=== PATIENT | male | born 1955 | race Caucasian/White ===

== ENCOUNTER → 2016-09-01 | Day surgery (SDC) | payer BC ==
[2016-08-28 08:49] VITALS: BMI 46.0
--- NOTE | 2016-08-28 09:30 | PAT Medication Instructions ---
Service Date Aug 28, 2016. Current Home Medication List Candesartan Cilexetil-Hydrochl (Atacand Hct), 1 TAB PO QAM Cholecalciferol (Vitamin D3), 2 TAB PO QAM Indomethacin (Indocin), 50 MG PO TID Lansoprazole (Prevacid), 30 MG PO QAM Loratadine (Claritin), 10 MG PO QAM Metoprolol Succ (Toprol Xl) (Toprol-Xl), 50 MG PO QAM Isabella-3 Fatty Acids (Fish Oil 1200 mg), 2,000 MG PO QAM Medication Instructions For Your Scheduled Surgery Isabella-3 Fatty Acids (Fish Oil 1200 mg), 2,000 MG PO QAM (patient has been holding medication since the week 08/18/16) - Hold the following medications the morning of surgery: Loratadine (Claritin), 10 MG PO QAM Cholecalciferol (Vitamin D3), 2 TAB PO QAM Indomethacin (Indocin), 50 MG PO TID (not told to stop by surgeon) Candesartan Cilexetil-Hydrochl (Atacand Hct), 1 TAB PO QAM - Take the following medications the morning of surgery with a sip of water: Metoprolol Succ (Toprol Xl) (Toprol-Xl), 50 MG PO QAM Lansoprazole (Prevacid), 30 MG PO QAM If you have any questions please call us at [phone] or [phone] ( Princess) or [phone]
[2016-08-28 09:59] LABS: BASO % 0.4 %; BASO ABS # 0.03 K/uL (0-0.2); COMPLETE YES; EOS % 4.3 %; IG% 0.7 %; LYMPH % 32.2 %; LYMPH ABS # 2.45 K/uL (1.2-3.4); MEAN CELL VOLUME 87.6 fL (80-100); MEAN CORPUSCULAR HEMOGLOBIN 30.5 pg (25-34); MEAN CORPUSCULAR HGB CONC 34.8 g/dl (32-36); MEAN PLATELET VOLUME 11.6 fL (7.4-10.4); NEUT % 55.4 %; PLATELET COUNT 116 K/uL (130-400); RED BLOOD COUNT 5.02 M/uL (4.7-6.1)
[2016-08-28 10:04] LABS: URINE APPEARANCE CLEAR (CLEAR); URINE BILIRUBIN NEG (NEG); URINE COLOR YELLOW; URINE NITRITE NEG (NEG); URINE SPECIFIC GRAVITY 1.022 (1.000-1.030); UROBILINOGEN NEG (NEG)
[2016-08-28 10:05] LABS: MANUAL MICROSCOPIC REQUIRED? NO; REVIEW REQ? NO
--- NOTE | 2016-08-28 10:12 | DIAGNOSTIC IMAGING REPORT ---
CHEST PREADMISSION(PA/LAT) HISTORY: Preop. COMPARISON: None. FINDINGS: The lungs are clear. Cardiac silhouette is normal in size. No pleural effusions. No pneumothorax. IMPRESSION: No acute process. Electronically signed by: Morgan Hollis M.D. 08/28/2016 10:10 AM Dictated Date/Time: 08/28/2016 10:08 AM
[2016-08-28 10:15] LABS: BUN/CREATININE RATIO 17.4 (10-20); CREATININE 1.4 mg/dl (0.60-1.40); POTASSIUM 4.3 mmol/L (3.5-5.1)
[~2016-09-01] VITALS: Ht 180.3 cm; Wt 149.7 kg
[~2016-09-01] MED LIST: CAND32TA PO; CEFAZOLIN 3000 MG/65 ML D5W IV SCH; CEFAZOLIN SOD 1 GM VIAL ONE; CHOL20007 PO; CLR10 PO; DEXAMETHASONE SOD INJ 4 MG/ML VIAL ONE; DiphenhydrAMINE HCL 50 MG/ML VIAL ONE; EpHEDrine SULFATE 50MG/5ML SYR ONE; FENTANYL CITRATE INJ 50 MCG/1 ML 2 ML VIAL ONE; FLX5 PO; GLYCOPYRROLATE INJ 0.2 MG/ML VIAL ONE; INDO-24 PO; KETAMINE HCL INJ 50 MG/ML 10 ML VIAL ONE; LACTATED RINGER'S 1000ML 1,000 ML IV SCH; LANS30CA12 PO; LARYING-O-JET KIT (LTA) EXT ONE; LIDOCAINE HCL 2% 2 ML VIAL (20MG/ML) ONE; METO50TA7 PO; METOCLOPRAMIDE HCL INJ 5 MG/ML 2 ML VIAL ONE; MIDAZOLAM HCL 1 MG/ML 2ML VIAL ONE; MoRPHine SULFATE 2 MG/ML CARP ONE; NEOSTIGMINE METHYLSULFATE 5 MG/5 ML SYR ONE; OMEG5CAP PO; ONDANSETRON INJ 2 MG/ML 2 ML VIAL ONE; PROPOFOL IV EMULSION 10 MG/ML 20 ML VIAL IV ONE; ROCURONIUM BROMIDE 10 MG/ML 5 ML VIAL ONE; RXC5 PO; SUCCINYLCHOLINE CHLORIDE 20 MG/ML 10 ML VIAL IV ONE
--- NOTE | 2016-09-01 07:32 | History & Physical Bridge Note ---
H&P Re-Evaluation Bridge Note: I have examined the patient, reviewed the History & Physical and in the interval since the performance of the History & Physical I have noted the following changes of clinical significance: No changes noted
[2016-09-01 12:16] VITALS: BP 139/89; PULSE 55; TEMP 36.8; O2SAT 96; Ht 180.3 cm; Wt 149.7 kg
== END | disposition home or self-care (01) ==
LOC: C.ACU 11:48
PROVIDERS: ATTEND Orthopaedic Surgery Orthopaedic Surgery of the Spine
DX: M43.16 Spondylolisthesis, lumbar region (principal); M48.06 Spinal stenosis, lumbar region; R32 Unspecified urinary incontinence; I10 Essential (primary) hypertension; G47.30 Sleep apnea, unspecified; E78.00 Pure hypercholesterolemia, unspecified

== ENCOUNTER 2016-09-02 10:41 | Inpatient (IN) | payer BC ==
--- NOTE | 2016-08-28 13:58 | HISTORY & PHYSICAL EXAMINATION ---
DATE OF ADMISSION: 09/02/2016 HISTORY OF PRESENT ILLNESS: The patient presents to our office with complaint of back pain and claudication of his leg. He was initially seen by Dr. Burgos and recommended for pain management. He trialed pain management which gave him about 2 to 2-1/2 weeks of relief of his symptoms. He can stand or walk for 20-30 years before he must stop and sit down to alleviate his pain. He notes some when issues with incontinence over the past month when he lies flat. No saddle paresthesias. Denies change in balance. PAST MEDICAL HISTORY: Significant for GERD, hypercholesterolemia, hypertension, sleep apnea, and gout. PAST SURGICAL HISTORY: Significant for an ACL repair. ALLERGIES: INCLUDE ZESTRIL. MEDICATIONS: Not listed. REVIEW OF SYSTEMS: Significant for urge incontinence and back pain. FAMILY HISTORY: Significant for arthritis, cancer, hypertension, and high cholesterol. SOCIAL HISTORY: He is . He uses chewing tobacco for 40+ years. Denies alcohol use. 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. PHYSICAL EXAMINATION: GENERAL: 5 feet 11 inches and 325 pounds. HEENT: Speech appropriate. CARDIOPULMONARY: No gross abnormalities. ABDOMEN: Soft, nondistended. GENITOURINARY: Deferred. NEUROLOGIC: Cranial nerves II-XII grossly intact. MUSCULOSKELETAL: Moves easily around the room. He has positive tension signs. Strength is intact to the bilateral lower extremities. Sensation is intact. ASSESSMENT: Grade 1 spondylolisthesis of L4-5, severe spinal stenosis, multilevel lumbar spine. PLAN: At this point in time, he has tried and failed conservative therapy and may consider surgical intervention. Surgery would require lumbar decompression with instrumented fusion L2-3, L3-4, L4-5 and L5-S1. Risks, benefits, pros, cons, and alternatives were outlined in detail. The patient would like to proceed with the above-mentioned surgical intervention. XANDER
[~2016-09-02] VITALS: Ht 180.3 cm; Wt 149.7 kg
[~2016-09-02 10:41] MED LIST changes: -CEFAZOLIN 3000 MG/65 ML D5W IV SCH; -CEFAZOLIN SOD 1 GM VIAL ONE; -DEXAMETHASONE SOD INJ 4 MG/ML VIAL ONE; -DiphenhydrAMINE HCL 50 MG/ML VIAL ONE; -EpHEDrine SULFATE 50MG/5ML SYR ONE; -FENTANYL CITRATE INJ 50 MCG/1 ML 2 ML VIAL ONE; -FLX5 PO; -GLYCOPYRROLATE INJ 0.2 MG/ML VIAL ONE; -KETAMINE HCL INJ 50 MG/ML 10 ML VIAL ONE; -LACTATED RINGER'S 1000ML 1,000 ML IV SCH; -LARYING-O-JET KIT (LTA) EXT ONE; -LIDOCAINE HCL 2% 2 ML VIAL (20MG/ML) ONE; -METOCLOPRAMIDE HCL INJ 5 MG/ML 2 ML VIAL ONE; -MIDAZOLAM HCL 1 MG/ML 2ML VIAL ONE; -MoRPHine SULFATE 2 MG/ML CARP ONE; -NEOSTIGMINE METHYLSULFATE 5 MG/5 ML SYR ONE; -ONDANSETRON INJ 2 MG/ML 2 ML VIAL ONE; -PROPOFOL IV EMULSION 10 MG/ML 20 ML VIAL IV ONE; -ROCURONIUM BROMIDE 10 MG/ML 5 ML VIAL ONE; -RXC5 PO; -SUCCINYLCHOLINE CHLORIDE 20 MG/ML 10 ML VIAL IV ONE
[2016-09-02 11:17] VITALS: BP 126/67; PULSE 54; TEMP 36.7; O2SAT 96; Ht 180.3 cm; Wt 149.7 kg
[2016-09-02] MEDS ORDERED: CEFAZOLIN IV 3,000 MG/65 ML D5W IV ONE (12:56)
[2016-09-02] MEDS ORDERED: NURSING VERBAL MED ORDER ONE (13:00)
[2016-09-02] MEDS ORDERED: BUPIVACAINE/EPINEPHRINE 0.5% MPF 1:200,000 30 ML VIAL INJ ONE (14:55)
[2016-09-02] MEDS ORDERED: THROMBIN 20,000 UNITS (RECOMBINANT) TOP ONE (15:44)
[2016-09-02] MEDS ORDERED: SURGICEL ABSORB HEMOSTAT 2IN X 14IN TOP ONE (15:45)
[2016-09-02] MEDS ORDERED: DURASEAL DURAL SEALANT 5ML TOP ONE (16:57)
[2016-09-02] MEDS ORDERED: BACITRACIN 50000 UNIT VIAL IR ONE (17:33)
[2016-09-02] MEDS ORDERED: FLOSEAL HEMOSTATIC MATRIX 10ML TOP ONE (18:13)
[2016-09-02] MEDS ORDERED: SODIUM CHLORIDE 0.9% 1000ML 1,000 ML IV SCH (18:43)
--- NOTE | 2016-09-02 18:43 | [facility] Post Operative Brief Note ---
Immediate Operative Summary Operative Date Sep 02, 2016. Pre-Operative Diagnosis Grade 1 spondylolisthesis of L4-5, severe spinal stenosis, multilevel lumbar spine. Post-Operative Diagnosis Same as preoperative diagnosis Procedure(s) Performed L2-L5 Lumbar Laminectomy, Decompression; Pedicle Screw Fixation; Placement of Interbody Device; L2-S1 Posterolateral Fusio Bone Morphogenetic Protein; Iliac [place] Fixation, Use of Lyn Surgeon Dr. Varghese Relationship Management Lead Surgeon(s) None Estimated Blood Loss 1900ml Findings stenosis Specimens None
[2016-09-02] MEDS ORDERED: DO NOT ADMINISTER FLU VACCINE PRN ×3 (18:45)
[2016-09-02] MEDS ORDERED: LORAZEPAM INJ 0.5 MG in SYRINGE 0 ML IV PRN (18:45)
[2016-09-02] MEDS ORDERED: ALUMINUM/MAGNESIUM SUSP 30 ML UDC PO PRN (18:45)
[2016-09-02] MEDS ORDERED: BISACODYL 10 MG SUPP PR PRN (18:45)
[2016-09-02] MEDS ORDERED: HYDROmorphone INJ 2 MG/ML SYR/VIAL IV PRN (18:45)
[2016-09-02] MEDS ORDERED: ACETAMINOPHEN 500 MG TAB PO PRN (18:45)
[2016-09-02] MEDS ORDERED: PROMETHAZINE HCL INJ 12.5 MG in SODIUM CHLORIDE 0.9% 50ML 50 ML IV PRN (18:45)
[2016-09-02] MEDS ORDERED: ONDANSETRON INJ 2 MG/ML 2 ML VIAL IV PRN ×2 (18:45)
[2016-09-02] MEDS ORDERED: MAGNESIUM HYDROXIDE SUSP 30 ML UDC PO PRN (18:45)
[2016-09-02] MEDS ORDERED: NALOXONE HCL 0.4 MG/1 ML VIAL/CARP IV PRN ×2 (18:45)
[2016-09-02] MEDS ORDERED: SOD PHOSPHATE/SOD BIPHOSPHATE ENEMA 132 ML BTL PR PRN (18:45)
[2016-09-02] MEDS ORDERED: FAMOTIDINE 20 MG TAB PO PRN (18:45)
[2016-09-02] MEDS ORDERED: DO NOT ADMINISTER PNEUMOCOCCAL VACCINE PRN ×2 (18:45)
[2016-09-02] MEDS ORDERED: ATROPINE SULFATE 0.1 MG/ML 5ML SYR IV PRN (18:45)
[2016-09-02] MEDS ORDERED: hydrOXYzine HCL 25 MG TAB PO PRN (18:45)
[2016-09-02] MEDS ORDERED: ACETAMINOPHEN IV 100 ML IV PRN (18:45)
[2016-09-02] MEDS ORDERED: LORAZEPAM 0.5 MG TAB PO PRN (18:45)
[2016-09-02] MEDS ORDERED: LABETALOL HCL IV 5 MG/ML 20ML IV PRN (18:45)
[2016-09-02] MEDS ORDERED: METOCLOPRAMIDE HCL INJ 5 MG/ML 2 ML VIAL IV PRN (18:45)
[2016-09-02] MEDS ORDERED: HYDROmorphone HCL 0.5MG/ML 50 ML CASSETTE ONE (19:00)
--- NOTE | 2016-09-02 19:06 | DIAGNOSTIC IMAGING REPORT ---
INTRAOPERATIVE FLUOROSCOPIC IMAGES OF THE LUMBAR SPINE CLINICAL HISTORY: Decompression and fusion. COMPARISON STUDY: No previous studies for comparison. FLUOROSCOPY TIME: 42 seconds. FINDINGS: 3 fluoroscopic images were submitted for interpretation. These images demonstrate an L4-L5 discectomy with interbody spacer placement. There are bilateral pedicle screws at the L2, L3, L4, L5 and S1 levels with bilateral iliac bolts. Interconnecting rods are present. IMPRESSION: Findings consistent with an L4-L5 discectomy and L2-S1 bilateral pedicle screw fusion. Electronically signed by: Chano Adan M.D. 09/02/2016 7:04 PM Dictated Date/Time: 09/02/2016 7:03 PM
[2016-09-02 20:00] VITALS: BP 138/74; PULSE 67; TEMP 36.7; O2SAT 95
--- NOTE | 2016-09-02 20:16 | Anesthesiology Progress Note ---
Anesthesia Post Op Note Date & Time Sep 02, 2016 at 20:15 Vital Signs Pain Intensity: 4 Vital Signs Past 12 Hours Date Time Temp Pulse Resp B/P Pulse Ox O2 Delivery O2 Flow Rate FiO2 09/02/16 19:40 36.8 84 16 120/70 97 Nasal Cannula 4 09/02/16 19:30 81 16 112/70 96 Nasal Cannula 4 09/02/16 19:20 67 16 112/70 99 Mask 10 09/02/16 19:10 86 16 126/73 99 Mask 10 09/02/16 19:00 36.8 85 16 101/68 98 Mask 10 09/02/16 11:17 36.7 54 20 126/67 96 Room Air Notes Mental Status: alert / awake / arousable, participated in evaluation Pt Amnestic to Procedure: Yes Nausea / Vomiting: adequately controlled Pain: adequately controlled Airway Patency, RR, SpO2: stable & adequate BP & HR: stable & adequate Hydration State: stable & adequate Anesthetic Complications: no major complications apparent
[2016-09-02] MEDS: DEXAMETHASONE INJ 6 MG in SYRINGE 0 ML IV SCH (20:24)
[2016-09-02 21:00] VITALS: BP 128/77; PULSE 86; TEMP 36.5; O2SAT 97
[2016-09-02] MEDS: HYDROmorphone HCL 0.5MG/ML 50 ML CASSETTE IV PRN ×2 (21:01→23:13)
[2016-09-02] MEDS: DOCUSATE SODIUM/SENNA 50/8.6MG TAB PO SCH (21:02)
[2016-09-02] MEDS: LACTATED RINGER'S 1000ML 1,000 ML IV SCH (21:02)
--- NOTE | 2016-09-02 21:13 | OPERATIVE REPORT ---
DATE OF OPERATION: 09/02/2016 PREOPERATIVE DIAGNOSES: Spinal stenosis, spondylolisthesis. POSTOPERATIVE DIAGNOSIS: Same. PROCEDURE PERFORMED: 1. Lumbar decompression, medial facetectomy and foraminotomy L2-3, L3-4, L4-5, L5-S1. 2. Posterior spinal fusion L2-L3, L3-L4, L4-L5, L5-S1. 3. Bilateral SI joint fusions. 4. Placement posterior segmental instrumentation using Orthros rods and screws and Medicrea iliac bolts L2-S1. 5. Interbody fusion L4-L5. 6. Placement of PEEK cage 14 x 26 mm at L4-L5. 7. Placement of locally harvested morselized autograft posterior gutters. 8. Placement of Infuse collagen sponge combined with Mastergraft in the posterior gutters and Lyn bone grafting interbody space. SURGEON: Dr. Yordy Varghese. ANESTHESIA: General. DISPOSITION: The patient awakened and taken to PACU in stable condition. HISTORY OF PATIENT'S PROBLEMS: A 60-year-old male that presents with above-mentioned diagnosis after failing an extensive course of nonoperative care, elected to undergo the above-mentioned procedure. Risks, benefits, pros, cons, and alternatives were outlined in detail preoperatively. PROCEDURE: The patient was met with preoperatively, case discussed and all questions were addressed. At that point the patient was taken back to operative suite and after undergoing successful general intubation by the department of anesthesia was placed in prone position on Jett table atop True frame. All bony prominences were well padded and the eyes were inspected to ensure there was no external pressure placed upon them. At this point, lumbar spine was prepped and draped in normal sterile fashion. Sharp dissection with the assistance of Bovie cautery performed down to and exposing the lamina and transverse processes of L2, L3, L4, L5 and sacral ala bilaterally. From a caudal to cephalad fashion, complete laminectomy of L4, L3, L2, partial laminectomy of L5 was performed addressing severe central lateral recess disease. Pedicle screws were then placed in L2, L3, L4, L5 and S1 levels bilaterally with the assistance of fluoroscopy as well as bilateral iliac bolts. Through a transforaminal approach on the left, a complete diskectomy of L4-5 was performed, endplates curetted to subcortical bleeding bone and a 14 x 26 mm PEEK cage filled with Lyn bone grafting tapped into position. Appropriate size rods were then contoured, locked into position bilaterally and transverse processes of L2, L3, L4, L5 and sacral ala as well as the bilateral SI joints were burred to subcortical bleeding bone. Infuse collagen sponge combined with Mastergraft and locally harvested morcellized autograft was placed. A 7 flat ELVIRA drain was inserted and incision was closed with 1-0 Vicryl in the fascia, 2-0 Vicryl subcutaneously, 4-0 Monocryl for final skin closure. Steri-Strips and sterile placed. The patient was awakened and taken to PACU in stable condition. I attest to the content of the Intraoperative Record and any orders documented therein. Any exceptio ns are noted below.
[2016-09-02] MEDS: CEFAZOLIN IV 3,000 MG in DEXTROSE 5% 50ML 50 ML IV SCH (21:50)
[2016-09-02 22:00] VITALS: BP 137/83; PULSE 71; TEMP 36.6; O2SAT 98
[2016-09-02 23:00] VITALS: BP 151/90; PULSE 67; TEMP 36.8; O2SAT 98
[2016-09-02 23:40] VITALS: O2SAT 98
[2016-09-03] MEDS: LACTATED RINGER'S 1000ML 1,000 ML IV SCH ×2 (01:25→09:04)
[2016-09-03 03:27] VITALS: BP 116/70; PULSE 88; TEMP 36.7; O2SAT 96
[2016-09-03] MEDS: DEXAMETHASONE INJ 6 MG in SYRINGE 0 ML IV SCH ×2 (04:01→12:15)
[2016-09-03] MEDS: CEFAZOLIN IV 3,000 MG in DEXTROSE 5% 50ML 50 ML IV SCH (05:54)
[2016-09-03] MEDS ORDERED: HYDROmorphone INJ 1 MG/ML SYR IV PRN (06:00)
[2016-09-03] MEDS ORDERED: DC PCA SCH (06:00)
[2016-09-03 06:54] LABS: BASO % 0.1 %; BASO ABS # 0.01 K/uL (0-0.2); COMPLETE YES; HEMATOCRIT 37.7 % (42-52); IG% 0.4 %; LYMPH % 6.1 %; LYMPH ABS # 0.99 K/uL (1.2-3.4); MEAN CELL VOLUME 87.1 fL (80-100); MEAN CORPUSCULAR HEMOGLOBIN 29.6 pg (25-34); MONO % 2.3 %; NEUT % 91.1 %; PLATELET COUNT 152 K/uL (130-400); RED BLOOD COUNT 4.33 M/uL (4.7-6.1); WHITE BLOOD COUNT 16.36 K/uL (4.8-10.8)
[2016-09-03 07:26] LABS: BUN/CREATININE RATIO 13.8 (10-20); CREATININE 1.7 mg/dl (0.60-1.40); POTASSIUM 4.1 mmol/L (3.5-5.1)
[2016-09-03 07:32] VITALS: BP 110/66; PULSE 68; TEMP 36.9; O2SAT 95
[2016-09-03] MEDS: OXYCODONE HCL IR 5 MG TAB (IMMEDIATE RELEASE) PO PRN ×2 (08:58→21:22)
[2016-09-03] MEDS: PANTOprazole SOD 40 MG TAB PO SCH (08:59)
[2016-09-03] MEDS: METOPROLOL SUCC 50MG EXT REL TAB PO SCH (08:59)
[2016-09-03] MEDS: LORATADINE 10 MG TAB PO SCH (08:59)
[2016-09-03] MEDS ORDERED: RXC5 PO (09:52)
--- NOTE | 2016-09-03 09:52 | Discharge Instructions ---
Discharge Instructions Admission Reason for Admission: Spinal Stenosis Discharge Discharge Diagnosis / Problem: stenosis Discharge Goals Goal(s): Improve function Activity Recommendations Activity Limitations: per Instructions/Follow-up section . Instructions / Follow-Up Instructions / Follow-Up ACTIVITY RECOMMENDATIONS: SELF CARE INSTRUCTIONS AFTER THORACIC/LUMBAR FUSIONS 1. You may walk to your tolerance. It is good exercise for your legs and back. Expect some back and intermittent leg aches and pains. 2. You may perform "counter-top" level activities (make a sandwich, nona with a project, etc.). 3. No bending or lifting of more than 10 pounds or back twisting of any nature (roll like a log when turning in bed). 4. You may ride in a car for 20-30 minutes at a time. No driving until after your first visit with your doctor. 5. Frequent changes of position and restricting sitting to 30 minutes at a time will help limit the amount of back spasms and stiffness you may experience. 6. You may discontinue the use of ambulatory aids (cane, crutches, etc.) once your strength and confidence allow. 7. You may pinked edge sewing machine operator the shower and let water strike your incision when you arrive home at least once daily. Do not take a tub bath, sit in a hot tub or go into a swimming pool until after your first recheck in the office. SPECIAL CARE INSTRUCTIONS: VERY IMPORTANT TO READ AND REVIEW A. Your surgical incision has been closed with a cosmetic suture under the skin that will dissolve in about 6 weeks. In 14 days, you can use a pair of clean scissors and cut the suture that is left outside of the skin at the ends of your incision. 1. The small skin tapes can be removed 7 days after surgery if they have not fallen off by that point. 2. You may keep the wound open to air as much as possible to promote healing after post-op day number 5 unless told otherwise by your doctor. 3. If you think the wound looks like it is becoming infected (redness or worsening drainage) and/or you are experiencing fever, chill or worsening back pain and muscle spasms, contact the office so that we may evaluate you as soon as possible. B. Complications are uncommon, but please contact us if you have any signs or symptoms of: 1. wound infection (fever higher than 102.5 degrees F, redness, separation of wound, drainage, or increasing pain from the incision) 2. blood clots in legs (pain, swelling, redness and warmth in legs) 3. urinary tract infection (fever higher than 102.5 degrees F, burning upon urination or increased frequency of urination) 4. nerve problems (inability to walk on your toes or heels, numbness, loss of bowel or bladder control) 5. any other symptoms that concern you C. Please call the office at if you have any concerns or questions about your operation or recovery. D. No smoking! Smoking drastically decreases the chance of a solid fusion. E. Do not take any anti-inflammatory medications (Indocin, Advil, Motrin, Aspirin, Naprosyn, etc.) as these may inhibit the chance of a solid fusion. Tylenol is okay to take for pain. MANAGING PAIN AFTER SPINAL SURGERY 1. Narcotic medication is intended for short-term use and will be provided for surgical pain. Surgical pain usually lasts for a period of 4-6 weeks. Narcotic medication includes Percocet, Vicodin, Darvocet, Tylenol #3 or Lortab. 2. Longer-term pain is more appropriately treated with non-narcotic medication such as Tylenol ES. 3. Muscle spasm is not appropriately treated with narcotics. Muscle relaxers such as Soma, Flexeril or Skelaxin can be used along with Tylenol ES. 4. Remember that we all live with some "aches and pains". This is not unusual or uncommon after an injury or as we get older. a. Back pain is expected and may include muscle spasms for 4 to 6 weeks after surgery. The pain should gradually improve. If the pain worsens for no apparent reason, please contact the office. b. Intermittent leg pain may also be experienced and should not be concerned about unless it worsens for no apparent reason. If so, please contact the office. 5. We will provide appropriate medication within the normal guidelines of their prescribed use. We will also be very cautious and aware of potential abuse and extended duration of patients' medication needs. a. Pain medications are for your comfort and to assist with sleep and rest so that the tissue can heal. They are not provided in order to return to normal activity and should not be used through the day. To do so or worsening pain at night can result from ongoing tissue damage and development of tolerance to the prescribed medicine. 6. Please allow 2-3 days to process refills. Prescriptions will not be mailed but must be picked up at the office. FOLLOW UP VISIT: Keep your scheduled follow-up appointment. Any questions, please call the office at . Current Hospital Diet Patient's current hospital diet: Regular Diet Discharge Diet Recommended Diet: Regular Diet Procedures Procedures Performed: L2-L5 Lumbar Laminectomy, Decompression; Pedicle Screw Fixation; Placement of Interbody Device; L2-S1 Posterolateral Fusion Bone Morphogenetic Protein; Iliac [place] Fixation, Use of Lyn Pending Studies Studies pending at discharge: no Medical Emergencies . Who to Call and When: Medical Emergencies: If at any time you feel your situation is an emergency, please call 911 immediately. . Non-Emergent Contact Non-Emergency issues call your: Primary Care Provider . "Provider Documentation" section prepared by Yordy Varghese. VTE Core Measure Inpt VTE Proph given/why not?: Candis Loja, STEFANO's
--- NOTE | 2016-09-03 10:05 | Anesthesiology Progress Note ---
Anesthesia Post Op Note Date & Time Sep 03, 2016 at 10:04 Vital Signs Pain Intensity: 9.0 Vital Signs Past 12 Hours Date Time Temp Pulse Resp B/P Pulse Ox O2 Delivery O2 Flow Rate FiO2 09/03/16 07:32 36.9 68 16 110/66 95 Room Air 09/03/16 03:27 36.7 88 18 116/70 96 Room Air 09/02/16 23:40 98 Nasal Cannula 4.0 09/02/16 23:00 36.8 67 18 151/90 98 Nasal Cannula 4.0 Notes Mental Status: alert / awake / arousable, participated in evaluation Pt Amnestic to Procedure: Yes Nausea / Vomiting: adequately controlled Pain: adequately controlled Airway Patency, RR, SpO2: stable & adequate BP & HR: stable & adequate Hydration State: stable & adequate Anesthetic Complications: no major complications apparent
--- NOTE | 2016-09-03 10:10 | PROGRESS NOTE ---
DATE: 09/03/2016 Postop day 1, back pain is controlled. Leg pain improved. Vital signs stable. T-max 36.9. ELVIRA drained 100 mL. Hematocrit this a.m. is 37.7. On exam, the patient was sitting up at bedside. Has good strength to testing and is comfortable. ASSESSMENT: Status post multilevel lumbar decompression and fusion. PLAN: At this time, will continue physical therapy, advance his bowel regimen and anticipate home this weekend.
[2016-09-03 11:03] VITALS: BP 101/65; PULSE 73; TEMP 36.8; O2SAT 94
[2016-09-03 11:08] VITALS: BP 127/77
[2016-09-03] MEDS ORDERED: NURSING VERBAL MED ORDER ONE (14:00)
[2016-09-03 15:29] VITALS: BP 142/71; PULSE 73; TEMP 36.8; O2SAT 95
[2016-09-03] MEDS: DOCUSATE SODIUM/SENNA 50/8.6MG TAB PO SCH (21:21)
[2016-09-03 23:28] VITALS: BP 116/67; PULSE 60; TEMP 36.8; O2SAT 95
[2016-09-04] MEDS: POLYETHYLENE (MIRALAX) 17 GM PACK PO SCH ×4 (06:34→23:49)
[2016-09-04 07:38] VITALS: BP 126/71; PULSE 59; TEMP 36.6; O2SAT 97
[2016-09-04 08:49] VITALS: BP 125/76; PULSE 63
[2016-09-04] MEDS: PANTOprazole SOD 40 MG TAB PO SCH (08:50)
[2016-09-04] MEDS: LORATADINE 10 MG TAB PO SCH (08:50)
[2016-09-04] MEDS: METOPROLOL SUCC 50MG EXT REL TAB PO SCH (08:50)
[2016-09-04] MEDS ORDERED: CYCLOBENZAPRINE HCL 5 MG TAB PO PRN (12:15)
[2016-09-04] MEDS ORDERED: KETOROLAC TROMETHAMINE 30 MG/ML VIAL IV PRN (12:15)
--- NOTE | 2016-09-04 12:51 | PROGRESS NOTE ---
DATE: 09/04/2016 Postop day #2. Back pain is controlled. Leg pain improving. Vital signs stable. T-max 36.6. ELVIRA drained 130 mL. No bowel movement as of yet. On exam the patient is ambulating halls, has good strength to testing, but obviously markedly uncomfortable in the lumbar region perioperative site. ASSESSMENT: Status post multilevel lumbar decompression and fusion. PLAN: At this time, will continue physical therapy, advance his bowel regimen and hopefully home tomorrow.
[2016-09-04 15:33] VITALS: BP 116/75; PULSE 58; TEMP 36.5; O2SAT 94
[2016-09-04] MEDS: DOCUSATE SODIUM/SENNA 50/8.6MG TAB PO SCH (20:29)
[2016-09-04 23:39] VITALS: BP 129/72; PULSE 62; TEMP 36.5; O2SAT 97
[2016-09-04 23:45] VITALS: O2SAT 97
[2016-09-05] MEDS: OXYCODONE HCL IR 5 MG TAB (IMMEDIATE RELEASE) PO PRN ×3 (02:00→13:00)
[2016-09-05] MEDS: POLYETHYLENE (MIRALAX) 17 GM PACK PO SCH ×2 (05:35→12:00)
[2016-09-05 07:00] VITALS: BP 138/75; PULSE 59; TEMP 36.8; O2SAT 97
[2016-09-05] MEDS ORDERED: FLX5 PO (08:18)
[2016-09-05] MEDS: LORATADINE 10 MG TAB PO SCH (08:46)
[2016-09-05] MEDS: PANTOprazole SOD 40 MG TAB PO SCH (08:46)
[2016-09-05 08:50] VITALS: BP 144/78; PULSE 58
[2016-09-05] MEDS: METOPROLOL SUCC 50MG EXT REL TAB PO SCH (08:51)
[2016-09-05 10:52] VITALS: BP 144/78; PULSE 58; TEMP 36.8; O2SAT 97
--- NOTE | 2016-09-05 14:18 | DISCHARGE SUMMARY ---
PRINCIPAL DIAGNOSIS: Spinal stenosis. HOSPITAL COURSE FOLLOWS: On August 13 the patient underwent lumbar decompression and fusion, tolerated this well and taken to the orthopedic floor postoperatively. Postop day #1, he was up and ambulatory, progressed to day #2. On postop day #3, pain was well controlled, ELVIRA drain decreasing appropriately, so he was discharged home. Discharge orders and instructions found on the chart for further review.
== END 2016-09-05 13:17 | disposition home or self-care (01) | DRG 460 ==
LOC: ENRESERVDT → ENRESERVTM → C.ACU 10:41 → C.3E 18:47
PROVIDERS: ADMIT Orthopaedic Surgery Orthopaedic Surgery of the Spine; ATTEND Orthopaedic Surgery Orthopaedic Surgery of the Spine
PROC: 0SG70ZZ (ICD-10-PCS; 2016-09-02)
PROC: 0SG80ZZ (ICD-10-PCS; 2016-09-02)
PROC: 0SG30A1 (ICD-10-PCS; 2016-09-02)
PROC: 0SG10A1 (ICD-10-PCS; 2016-09-02)
PROC: 0ST20ZZ Resection of Lumbar Vertebral Disc, Open Approach (ICD-10-PCS; principal; 2016-09-02 13:30)
DX: M43.16 Spondylolisthesis, lumbar region (principal); K21.9 Gastro-esophageal reflux disease without esophagitis; E78.00 Pure hypercholesterolemia, unspecified; I10 Essential (primary) hypertension; G47.30 Sleep apnea, unspecified; M10.9 Gout, unspecified; M48.06 Spinal stenosis, lumbar region; Z88.8 Allergy status to other drugs, medicaments and biological substances; N39.41 Urge incontinence; Z82.61 Family history of arthritis; Z80.9 Family history of malignant neoplasm, unspecified; Z82.49 Family history of ischemic heart disease and other diseases of the circulatory system; Z83.42 Family history of familial hypercholesterolemia; F17.220 Nicotine dependence, chewing tobacco, uncomplicated

== ENCOUNTER → 2017-10-02 | Outpatient (CLI) | payer BC ==
[~2017-10-02] MED LIST changes: +FLX5 PO; -INDO-24 PO; -METO50TA7 PO; +METO50TA8 PO; +RXC5 PO
== END | disposition home or self-care (01) ==
LOC: C.PATHSPEC 17:48
PROVIDERS: ATTEND Dentist Oral and Maxillofacial Pathology
DX: D10.39 Benign neoplasm of other parts of mouth (principal)